=== PATIENT | male | born 1990 | race Caucasian/White ===

== ENCOUNTER 2017-12-03 13:06 | Emergency (ER) | payer BC, OTHER ==
[~2017-12-03] VITALS: Ht 180.3 cm; Wt 74.8 kg
[2017-12-03 13:13] VITALS: BP 141/71
[2017-12-03] MEDS ORDERED: LIDOCAINE 1% INJ 50 ML MDV IJ ONE (14:30)
== END 2017-12-03 14:41 | disposition home or self-care (01) ==
LOC: ER 13:12
DX: L03.012 Cellulitis of left finger (principal); J45.909 Unspecified asthma, uncomplicated; Z88.2 Allergy status to sulfonamides
CPT/HCPCS: 10060; 99283; A4606; A6402; Z7610